=== PATIENT | male | born 1955 | race Caucasian/White ===

== ENCOUNTER → 2019-12-21 09:25 | Outpatient (BNVA) | payer OTHER, SELFPAY | PROVIDERS: Family Provider Family Medicine; PCP Nurse Practitioner Family; Visit Provider Family Medicine | DX: S60.552A Superficial foreign body of left hand, initial encounter (principal); N52.9 Male erectile dysfunction, unspecified; I10 Essential (primary) hypertension; X58.XXXA Exposure to other specified factors, initial encounter; Z13.220 Encounter for screening for lipoid disorders; Z13.6 Encounter for screening for cardiovascular disorders | CPT/HCPCS: 73130; 80053; 80061 ==

== ENCOUNTER → 2020-12-22 11:10 | Outpatient (BNVA) | payer OTHER, SELFPAY | PROVIDERS: Family Provider Family Medicine; PCP Family Medicine; Visit Provider Family Medicine | DX: I10 Essential (primary) hypertension (principal); N52.9 Male erectile dysfunction, unspecified | CPT/HCPCS: 80053; 80061 ==